=== PATIENT | female | born 1985 | race Hispanic/Latino ===

== ENCOUNTER 2017-03-01 11:48 | Emergency (ER) | payer OTHER ==
[2017-03-01 12:06] VITALS: BP 119/72; PULSE 82; RESP 18; TEMP 99.1; O2SAT 100
[2017-03-01] MEDS ORDERED: Rabies Immune Globulin 150 INTLU/ML VIAL IM STA (12:42)
--- NOTE | 2017-03-01 13:01 | ED PDOC ---
HPI: Skin/Bite Injury Time Seen by Provider: 03/01/17 12:41 Chief Complaint (Nursing): Rabies Vaccine Series Chief Complaint (Provider): King Bite History Per: Patient History/Exam Limitations: no limitations Location Of Injury: Left: Foot (Left fourth digit) Additional Complaint(s): Preet Siu, a 31 year old female, presents to the ED with an animal bite. The patient reports that she was at her job site in [place] when she approached her car and a king rushed from underneath and attached itself to her foot. She states that the animal did not release until she started to hit her foot against the floor. The patient states that when she took off her shoe she did not realize the skin was broken but when she visited her doctor at [facility] was told there was a small break in the skin. The patient states that the doctor told her that because the king was out during the day and because of its aggressive state she may be at risk for rabies. The patient states that she was sent to the ED to get the remainder of the rabies shots but she states that one shot was given already. Patient states she was not given any antibiotics. - Animal Bite Description Of The Attack: Unprovoked Attack Description Of The Animal: Other (King) Animal's Immunization Status: Wild Animal Animal Control Notified: Yes Past Medical History Reviewed: Historical Data, Nursing Documentation, Vital Signs Vital Signs: Last Vital Signs Temp 99.1 F 03/01/17 12:05 Pulse 82 03/01/17 12:05 Resp 18 03/01/17 12:05 BP 119/72 03/01/17 12:05 Pulse Ox 100 03/01/17 13:05 - Medical History PMH: No Chronic Diseases - Surgical History Surgical History: No Surg Hx - Family History Family History: States: Unknown Family Hx - Allergies Allergies/Adverse Reactions: Allergies Allergy/AdvReac Type Severity Reaction Status Date / Time No Known Allergies Allergy Verified 03/01/17 12:41 Review of Systems Skin: Positive for: Other (Abrasion to left fourth digit) Physical Exam - Reviewed Nursing Documentation Reviewed: Yes Vital Signs Reviewed: Yes - Physical Exam Appears: Positive for: Non-toxic, No Acute Distress Skin: Positive for: Normal Color, Warm, Dry Eye Exam: Positive for: Normal appearance, EOMI, PERRL Extremity: Positive for: Normal ROM, Other (Patient hsowed provider a picture of where abrasion was noted, but the abrasion has since healed.). Negative for : Tenderness, Pedal Edema, Deformity, Swelling (No erythema) Neurologic/Psych: Positive for: Alert, Oriented, Gait - ECG O2 Sat by Pulse Oximetry: 100 (RA) Pulse Ox Interpretation: Normal Medical Decision Making Medical Decision Makin Initial Impression: 31 year old female presenting with animal bite Initial Impression: * Rabies Imogam 1500 intlu IM * Reevaluation Scribe Attestation Documented by Tricia Alonso acting as a scribe for Alysia Montanez PA-C. MD Scribe Attestation All medical record entries made by the Scribe were at my direction and personally dictated by me. I have reviewed the chart and agree that the record accurately reflects my personal performance of the history, physical exam, medical decision making, and the department course for this patient. I have also personally directed, reviewed, and agree with the discharge instructions and disposition. Disposition - Clinical Impression Clinical Impression: Rabies exposure, Need for rabies vaccination - Patient ED Disposition Is Patient to be Admitted: No - Disposition Disposition: Routine/Home Disposition Time: 13:09 Condition: STABLE Instructions: Rabies Vaccine (By injection), Rabies Immune Globulin (By injection), Rabies (ED), Rabies Vaccine (ED)
== END 2017-03-01 13:30 | disposition home or self-care (01) ==
LOC: H.ER 11:48
DX: Z23 Encounter for immunization (principal)